=== PATIENT | male | born 1975 | race Caucasian/White ===

== ENCOUNTER 2016-07-02 09:26 | Emergency (ER) | payer OTHER ==
[~2016-07-02] VITALS: Ht 188 cm; Wt 149.4 kg
[~2016-07-02 09:26] MED LIST: NOHOMEMEDS
[2016-07-02 10:27] LABS: HEMATOCRIT 37.7 % (38.0-50.0); MCH 22.2 PG (29.0-34.0); MCHC 30.5 G/DL (30.0-36.0); MCV 72.9 FL (86-99); MEAN PLAT.VOLUME 9.1 uM^3 (9.0-12.4); PLATELET COUNT 420 K/uL (156-360); RBC DIS.WIDTH-CV 14.4 % (11.8-14.6); RBC DIS.WIDTH-SD 37.4 % (39-53); RED BLOOD COUNT 5.17 M/uL (4.00-5.50); WHITE BLOOD COUNT 7.4 K/uL (4.1-10.2)
[2016-07-02 10:37] LABS: CHLORIDE 106 mEq/L (99-109)
[2016-07-02 10:38] LABS: POTASSIUM 3.8 mEq/L (3.7-5.4); SODIUM 141 mEq/L (136-147)
[2016-07-02 10:40] LABS: GLUCOSE 103 mg/dL (70-99)
[2016-07-02 10:41] LABS: ANION GAP 8 MEQ/L (2-14)
[2016-07-02 10:42] LABS: TOTAL BILIRUBIN 1.4 mg/dL (0.0-1.0)
[2016-07-02 10:43] LABS: ALKALINE PHOSPHATASE 70 IU/L (3-129); GFR ESTIMATE (CALCULATED) > 59 mL/min/
[2016-07-02 10:45] LABS: UREA NITROGEN (BUN) 15 mg/dL (9-23)
[2016-07-02 10:47] LABS: LIPASE 10 U/L (1.0-51.0)
[2016-07-02 11:46] LABS: ADD MIUA? YES; BILIRUBIN NEGATIVE; BLOOD MODERATE; COLOR YELLOW ((YELLOW)); GLUCOSE (STRIP) NEGATIVE; KETONES NEGATIVE; LEUKOCYTES NEGATIVE; NITRITE NEGATIVE; PROTEIN (STRIP) 30; SPECIFIC GRAVITY 1.021 (1.000-1.030)
[2016-07-02 12:29] LABS: BACTERIA NONE SEEN /HPF; EPITHELIAL CELLS RARE /HPF; MUCUS 1+ /LPF; UCUL ADDED? NO; WHITE BLOOD CELLS NONE SEEN /HPF (0-5)
[2016-07-02 12:30] LABS: CASTS NONE SEEN /LPF; CRYSTALS NONE SEEN
[2016-07-02] MEDS ORDERED: ZITHROMAX Z-PA250 MG PO (14:22)
[2016-07-02] MEDS ORDERED: ZOFRAN ODT4 MG PO (14:22)
[2016-07-02] MEDS ORDERED: PERCOCET 5/31 TABLET PO (14:22)
[2016-07-02 14:24] VITALS: BP 146/82
== END 2016-07-02 14:35 | disposition home or self-care (01) ==
LOC: EME 09:26
DX: N20.0 Calculus of kidney (principal); E78.5 Hyperlipidemia, unspecified; I10 Essential (primary) hypertension
CPT/HCPCS: 74176; 80053; 81003; 83690; 85027; 99281; 99284